=== PATIENT | female | born 1985 | race Caucasian/White ===

== ENCOUNTER 2022-03-13 10:28 | Outpatient (CLI) | payer BC, SELFPAY ==
[2022-03-13 12:22] LABS: Cholesterol* 103 mg/dL (90-199)
[2022-03-13 12:23] LABS: Glucose* 90 mg/dL (60-115); HDL Cholesterol* 48 mg/dL (>=50); LDL Cholesterol Calculated 33 mg/dL (<100); Triglycerides* 108 mg/dL (40-149)
== END 2022-03-13 10:29 | disposition home or self-care (01) ==
PROVIDERS: Visit Provider Physician Assistant
DX: Z01.419 Encounter for gynecological examination (general) (routine) without abnormal findings (principal); N92.0 Excessive and frequent menstruation with regular cycle; Z12.4 Encounter for screening for malignant neoplasm of cervix; Z13.6 Encounter for screening for cardiovascular disorders; Z13.1 Encounter for screening for diabetes mellitus
CPT/HCPCS: 80061; 82947; 84443; 87624; 88175

== ENCOUNTER 2022-03-17 12:06 | Outpatient (CLI) | payer BC, SELFPAY ==
--- NOTE | 2022-03-17 12:15 | CRLHL7_ITS ---
For Patients: As a result of the Century Cures Act, medical imaging exams and procedure reports are released immediately into your electronic medical record. You may view this report before your referring provider. If you have questions, please contact your health care provider. INDICATION: HEAVY/PAINFUL BLEEDING COMPARISON: none TECHNIQUE: 2D ny scale and color Doppler images were acquired of the pelvis using a transabdominal and transvaginal approach. FINDINGS: Sonographic images demonstrate a normal size and smooth outer contour of the uterus. Uterus measures 8.3 cm in length by 5.9 cm in AP diameter by 6.0 cm in transverse dimension. The endometrium measures 9 millimeters in composite thickness. There is a suggestion of small polyps within the endometrial canal on the cine clip. No endometrial fluid. Mild indistinctness of the junctional zone may be present. The right ovary measures 3.1 x 1.8 x 2.0 cm in size and the left ovary measures 3.8 x 1.7 x 2.1 cm. A small incidental complex left ovarian cyst is present measuring 1.8 x 1.6 x 1.7 cm, likely a hemorrhagic cyst. The ovaries demonstrate normal arterial and venous blood flow on color Doppler analysis. There are no suspicious fluid collections within the cul-de-sac. IMPRESSION: Endometrial thickness 9 millimeters with possible small polyps which are difficult to discern on the 2D images but appear to be present on the cine clip. Possible adenomyosis. No leiomyomas. Dictated by Maicol Goodwin MD @ 03/17/2022 2:05:33 PM (Electronically Signed)
== END 2022-03-17 12:07 | disposition home or self-care (01) ==
PROVIDERS: Visit Provider Physician Assistant
DX: N92.0 Excessive and frequent menstruation with regular cycle (principal); N94.6 Dysmenorrhea, unspecified; R10.2 Pelvic and perineal pain
CPT/HCPCS: 76830; 76856; 87086

== ENCOUNTER 2022-06-05 07:25 | Day surgery (SDC) | payer BC, SELFPAY ==
[2022-06-05] VITALS (22 sets, daily range): BP systolic 113–131; BP diastolic 73–92; PULSE 52–99; RESP 16–18; TEMP 36.1–37.1; O2SAT 97–100; BMI 31.7
[2022-06-05] MEDS: LACTATED RINGERS 1000 ML 1,000 ML 100 ML IV ×2 (07:38→09:31)
[2022-06-05] MEDS: SODIUM CHLORIDE 0.9 % (FLUSH) 10 ML SYRINGE IVF (07:38)
[2022-06-05 08:08] LABS: Ur HCG Qualitative* Negative (Negative)
[2022-06-05 08:19] LABS: Hemoglobin* 12.9 gm/dL (12.0-16.0)
[2022-06-05] MEDS: CLINDAMYCIN 900 MG/50 ML-D5W IVPB (08:38)
[2022-06-05 08:39] LABS: Creatinine* 0.7 mg/dL (0.5-1.5); Est. Creatinine Clearance* 90.14; Estimated Glomerular Filt Rate 113 ml/min
--- NOTE | 2022-06-05 09:04 | W.PM.NB ---
Nerve Block Nerve Block Time Seen by Provider: 08:35 Date Seen: 06/05/22 Type of block requested by surgeon for post-operative analgesia: TAP Side: bilateral Time out performed: Yes Verification of patient name: Yes Verification of date of : Yes Site marking: site marked Name of person performing procedure: Jony Continuous monitoring Was continuous monitoring of O2 sat, B/P, diagnostic cardiac sonographer, recorded every 15 minutes?: Yes Procedure Checklist: sterile prep, needles and gloves Ultrasound guided. Images saved: Yes Medications given in 5ml increments after negative aspiration: Marcaine %: 0.25 mL: 30 Needle gauge: 20 and Exparel mL: 10 Patient tolerated procedure well: Yes Additional comments: Needle noted adjacent to nerve Block Charges Block Charge (with Pro Fee): TAP Bilateral Use of Ultrasound Machine for Block: Yes- US Guidance/pain block
[2022-06-05] MEDS: GENTAMICIN 325 MG in 0.9 % SODIUM CHLORIDE 100 ml 100 ML 108.13 MG IVPB (09:05)
--- NOTE | 2022-06-05 09:05 | W.ANESCHARGE ---
Anesthesia Charges Start Date/Time Anesthesia Start Date: 06/05/22 Anesthesia Start Time: 08:28 Stop Date/Time Anesthesia Stop Date: 06/05/22 Anesthesia Stop Time: 12:00 Summary Emergency: No
[2022-06-05] MEDS: BUPIVACAINE 0.5% 30 ML INJECTION (11:00)
--- NOTE | 2022-06-05 12:03 | P.GYNPRC_ITS ---
Procedure Note Date Seen: 06/05/22 Procedure Details: PREOPERATIVE DIAGNOSIS: Menorrhagia Dysmenorrhea Family history of ovarian cancer Suspected endometrial polyp on recent imaging POSTOPERATIVE DIAGNOSIS: Menorrhagia Dysmenorrhea Family history of ovarian cancer Suspected endometrial polyp on recent imaging; benign results on frozen section of endometrial curettings intraoperatively TITLE OF OPERATION: 1. Dilation and curettage followed by frozen section 2. Total laparoscopic hysterectomy with bilateral salpingo-oophorectomy 3. Cystoscopy SURGEON: Frannie Strange MD CHIEF OPTOMETRY SERVICE: Carla Lugo MD ANESTHESIA: General IV FLUIDS: 1800 mL crystalloid ESTIMATED BLOOD LOSS: 50 mL FINDINGS: 1. Upon pelvic exam under anesthesia, the cervix and vagina were normal in appearance. Uterus was mobile and anteverted, of normal size and texture. There were no palpable adnexal masses. 2. Upon laparoscopy, survey of the upper abdomen revealed a normal appearance to the inferior edge of the liver, gallbladder and stomach. Bowels were grossly normal appearance, as was the appendix. There was an omental adhesion to the anterior abdominal wall just to the left and inferior to the umbilicus. Survey of the pelvis revealed normal appearance to the uterus. Bilateral tubes and ovaries were normal in appearance. The cul-de-sac and bladder reflection were normal in appearance. 3. Upon cystoscopy performed after completion of hysterectomy, survey of the bladder mucosa was normal. There were bilateral ureteral jets. COMPLICATIONS: None PROCEDURE IN DETAIL: Patient was taken to the operating room with IV running. She received gentamicin and clindamycin in preoperative prophylaxis. She was positioned in dorsal lithotomy position with her legs fully supported in Yellofin stirrups. General anesthesia was administered. She was prepped and draped in the usual sterile fashion. Pelvic exam under anesthesia was performed for the above-noted findings. Speculum was inserted. Cervix visualized and grasped along its anterior lip with a single-tooth tenaculum. Cervix was dilated with Hegar dilators to accommodate the small sharp curette. Sharp curettage was performed circumferentially and curettings were sent to pathologist for analysis. The frozen section analysis returned as benign intraoperatively. The medium-sized VCare uterine manipulator was selected. The tip of the uterine manipulator was inserted through the cervix into the uterine cavity and the balloon was inflated. The speculum and tenaculum were removed. The colpotomy cup was advanced, surrounding the cervix, and the proximal occluder was moved up along the shaft of the VCare and fixed in place. Berg catheter was placed. Patient's legs were then placed in neutral position. Attention was turned to patient's abdomen. Infraumbilical area was infiltrated with a small amount of Marcaine. A 5 mm infraumbilical incision was made with a scalpel and carried down to the underlying layer of fascia with the hemostat. 5 mm camera was placed within the 5 mm Fios Kii trocar, and advanced under direct visualization through the anterior abdominal wall into the peritoneal cavity, while tenting up the anterior abdominal wall. The trocar was removed. The balloon was inflated, holding the port in place. Pneumoperitoneum was achieved. Survey of the abdomen and pelvis revealed the above-noted findings. Three additional port sites were created. The first was in the patient's left lower quadrant, just superomedial to the left ASIS. The second was a hand's breadth superior to and slightly medial to the first. The third was in the patient's right lower quadrant, just superomedial to the right ASIS. An 11 mm incision was made in the left lower quadrant, and a 5 mm incision was made at the other 2 sites, after assuring that large vessels were out of harm's way. An 11 mm Fios Kii port was inserted at the left lower quadrant site, and a 5 mm Fios Kii port at each of the other 2 sites, under direct visualization and without complication. The balloon on each of the four ports was inflated, hold ing each in place. In order to place the last port, the above described omental adhesions to the anterior abdominal wall were dissected away with the Thunderbeat device, until the area planned for port insertion was clear. Hemostasis was noted. Attention was first turned to the right infundibulopelvic ligament, which was held away from the pelvic sidewall, cauterized and transected using the Th underbeat bipolar cautery device. Dissection was carried laterally to medially through the broad ligament. The right round ligament was cauterized and transected in its mid section with Thunderbeat. Attention was then turned to the left infundibulopelvic ligament, which was held away from the pelvic sidewall, cauterized and transected using the Thunderbeat bipolar cautery device. Dissection was carried laterally to medially through the broad ligament. The left round ligament was cauterized and transected in its midsection with the Thunderbeat. The left uterine artery was skeletonized. The bladder flap was created on the patient's left side, moving laterally to medially. The left uterine artery was cauterized and transected with the Thunderbeat device. Using the colpotomizer cup as a guide, the peritoneum and underlying stroma was dissected off the anticipated site of colpotomy over the posterior vaginal fornix. Attention was then turned to the right side of the uterus. The bladder flap was created on the patient's right side, and dissection was carried laterally to medially, meeting the dissection where it had left off from the patient's right side. The right uterine artery was cauterized and transected with the Thunderbeat device. The bladder reflection was moved well below the colpotomizer cup anteriorly. The vaginal fornix was then entered anteriorly with the Thunderbeat device, using the colpotomizer cup as a guide. Monopolar cautery was also used along the circumference of the colpotomizer cup, until the uterus and cervix were freed from their attachments to the pelvis. The uterus was pulled into the patient's vagina, maintaining the pneumoperitoneum. The vaginal cuff was closed with a series of [id number] sutures of 0 Vicryl. These sutures were placed and tied intracorporeally. Ports were left in place but all instruments were removed and pneumoperitoneum was released. Patient's legs were placed back in lithotomy position. The uterus was removed from the vagina and was sent to pathology for further analysis. Speculum exam was performed, showing an intact cuff with no obvious active bleeding. The Berg catheter was removed from the bladder, and the cystoscope was assembled with saline inflow, outflow, and light cord in place. The patient was given IV sodium fluorescein prior to the cystoscopy. Cystoscope was advanced through the urethra into the bladder, and survey of the mucosa revealed a normal appearance. The bladder dome was intact. Bilateral ureteral jets were noted. Cystoscope was removed and Berg catheter replaced. Patient's legs were again placed in neutral position. Insufflator was reattached to the port and pneumoperitoneum again achieved. Survey of the pelvis revealed hemostasis. The 11 mm Fios Kii port in the left lower quadrant was removed after balloon on the port was deflated. The Marty-Loree laparoscopic closure device was inserted through this port. With the help of this device, the fascia was closed with a single suture of 0-Vicryl. Procedure was deemed complete. The balloons of all remaining port sites were deflated, and all ports were removed after pneumoperitoneum was released. The skin of each port site was closed in a subcuticular fashion with 4 0 Vicryl. Surgical glue was applied above this. Patient tolerated procedure well and was taken to recovery area in stable condition.
--- NOTE | 2022-06-05 12:04 | W.ANESCHARGE ---
Anesthesia Charges Start Date/Time Anesthesia Start Date: 06/05/22 Anesthesia Start Time: 08:28 Stop Date/Time Anesthesia Stop Date: 06/05/22 Anesthesia Stop Time: 12:00 Summary Emergency: No
[2022-06-05] MEDS: fentaNYL 100 MCG/2 ML inj 50 MCG IVP ×2 (12:21→12:35)
[2022-06-05] MEDS: LACTATED RINGERS 1000 ML 1,000 ML 125 ML IV (14:15)
[2022-06-05] MEDS: OXYCODONE 5 MG TABLET PO (15:41)
[2022-06-05] MEDS: ACETAMINOPHEN 325 MG TABLET 650 MG PO ×2 (15:41→21:15)
[2022-06-05] MEDS: SIMETHICONE 80 MG TAB.CHEW 160 MG PO ×2 (15:43→20:20)
[2022-06-05] MEDS: KETOROLAC 30 MG/ML inj IVP ×2 (17:31→23:50)
[2022-06-06 03:37] VITALS: BP 114/71; PULSE 59; RESP 16; O2SAT 98
[2022-06-06] MEDS: ACETAMINOPHEN 325 MG TABLET 650 MG PO ×3 (03:49→12:02)
[2022-06-06] MEDS: OXYCODONE 5 MG TABLET PO ×3 (03:49→12:24)
[2022-06-06 04:53] LABS: Hemoglobin* 10.3 gm/dL (12.0-16.0)
[2022-06-06 05:07] LABS: Creatinine* 0.7 mg/dL (0.5-1.5); Est. Creatinine Clearance* 90.14; Estimated Glomerular Filt Rate 113 ml/min
[2022-06-06 08:15] VITALS: BP 101/66; PULSE 77; RESP 18; TEMP 36.9
--- NOTE | 2022-06-06 08:32 | PM.GYNDS1 ---
DS: Providers Provider Date Seen: 06/06/22 Date of admission: 06/05/2022 Primary care physician: Rupinder Rueda PA-C Admitting Clinician: Dr. Frannie Strange MD Attending Physician on discharge: Frannie Strange MD Date of Discharge: 06/06/22 DS: Diagnosis Discharge Diagnosis (1) Family history of ovarian cancer: Status: Acute Problem details: lifetime risk of ovarian cancer 3-5% (2) History of total vaginal hysterectomy (TVH): Status: Acute (3) Surgical menopause: Status: Acute (4) Anemia due to acute blood loss: Status: Acute PRECISION ASSEMBLY INSPECTOR-Discharge Summary Hospital Course Hospital Course Narrative: Patient is a 36 year old woman admitted on 06/05/2022 for dilation and curettage frozen section, followed by total laparoscopic hysterectomy with bilateral salpingo-oophorectomy and cystoscopy. Indication for surgery: Dysmenorrhea, menorrhagia, and increased risk of ovarian cancer. Intraoperative findings were notable for benign endometrial curettings on frozen section. Uterus, bilateral tubes and ovaries were normal appearance. She had an uncomplicated surgery. Postoperative course has been uneventful. Vitals have been stable. She has remained afebrile. Today, on postoperative day 1, she reports the pain is well controlled. She has been able to ambulate Without difficulty. She is tolerating regular diet. She is passing flatus. Berg catheter has been removed, and she is voiding without difficulty. Time Spent with Patient Time attestation: Total time spent providing and/or coordinating discharge services: PRECISION ASSEMBLY INSPECTOR - Exam Physical Exam: Vital signs: Temp Pulse Resp BP Pulse Ox O2 Del Method 98.4 F 77 18 101/66 98 06/06/22 08:15 06/06/22 08:15 06/06/22 08:15 06/06/22 08:15 06/06/22 03:37 06/06/22 08:15 Narrative: General: Pleasant, no acute distress Heart: Regular rate and rhythm, no murmur or gallop Lungs: Clear to auscultation bilaterally Abdomen: Soft, mildly tender, no distension, rebound or guarding, laparoscopic incisions clean and dry Lower extremities: No edema or erythema PRECISION ASSEMBLY INSPECTOR - DS: Data Data Completed and Pending Labs on day of discharge: Labs from last 24 hours 12/16/22 12/16/22 12/15/22 04:45 04:45 08:04 Hgb 10.3 L Creatinine 0.7 Estimated Creat Clear 90.14 Estimated GFR 113 Blood Type O Positive Antibody Screen NEGATIVE 06/05/22 08:04 Hgb Creatinine 0.7 Estimated Creat Clear 90.14 Estimated GFR 113 Blood Type Antibody Screen Procedures Procedures: Procedures Operation Date: 06/05/22 07:30 Actual Procedure Side Surgeon p Total Laparoscopic Hysterectomy, Bilateral Salpingo-Oophorectomy, Cystoscopy, D&C w/Frozen Section Frannie Strange MD Complications: none Discharge Plan Discharge Disposition: Home, Self-Care Discharging Surgeon: Frannie Strange Follow-Up Appointment: 2 and 6 weeks Prescriptions: New acetaminophen 325 mg Tablet 650 mg PO Q4H PRN (Reason: minor pain) Qty: 0 0RF oxycodone 5 mg Tablet 5 mg PO Q4H PRN (Reason: Moderate Pain) Qty: 10 0RF estradiol 0.1 mg/24 hr patch semiweekly 1 patch transdermal 2XW Qty: 8 2RF Rx Instructions: apply 1 patch for 3 days alternating with 1 patch for 4 days each week for 3 wks per 4-wk cycle Continued multivitamin [Daily Multi-Vitamin] Tablet 1 tab PO QAM B-Complex Folic Acid PO cyanocobalamin (vitamin B-12) 500 mcg tablet 500 mcg PO DAILY ferrous gluconate 324 mg (38 mg iron) tablet PO DAILY calcium citrate-vitamin D3 200 mg-6.25 mcg (250 unit) tablet 2 tab PO DAILY Discontinued peg 3350-electrolytes [Golytely] 236-22.74-6.74 -5.86 gram recon soln 240 ml PO Q15M Qty: 4000 0RF Rx Instructions: until fecal effluent is clear Activity Detail: No lifting >20 lbs for 4 [address] while taking narcotic pain medications. Do not submerge incisions under water for 2 weeks. Discharge Diet: Regular Patient Instructions: Laparoscopic Hysterectomy (DC) Forms: Work/School Release Follow-up: Frannie Strange MD [Staff Physician] - Rupinder Rueda PA-C [Primary Care Provider] - Discharge Orders: Discharge Order (Routine); Ordered 06/06/22 Ordered By: Frannie Strange
== END 2022-06-06 12:30 | disposition home or self-care (01) ==
LOC: OR 07:36 → OB 07:38
PROVIDERS: PCP Physician Assistant Medical; Visit Provider Obstetrics & Gynecology
PROC: 0UT94ZZ Resection of Uterus, Percutaneous Endoscopic Approach (ICD-10-PCS; CPT 58571; principal; 2022-06-05 07:30)
DX: N92.0 Excessive and frequent menstruation with regular cycle (principal); N94.6 Dysmenorrhea, unspecified; N84.0 Polyp of corpus uteri; N72 Inflammatory disease of cervix uteri; E28.2 Polycystic ovarian syndrome; D62 Acute posthemorrhagic anemia; Z80.41 Family history of malignant neoplasm of ovary
CPT/HCPCS: 58571; 58120; 00840; 36415; 51798; 64488; 76942; 81025; 82565; 85018; 86850; 86900; 86901; 88305; 88307; A9270; C9290; J0330; J1100; J1580; J1885; J2250; J2405; J2704; J3010; J3475; J3490; J7120; S0077

== ENCOUNTER 2022-06-24 08:54 | Outpatient (CLI) | payer BC, SELFPAY | END 2022-06-24 08:55 | disposition home or self-care (01) | PROVIDERS: PCP Physician Assistant Medical; Visit Provider Obstetrics & Gynecology | DX: R30.9 Painful micturition, unspecified (principal) | CPT/HCPCS: 87086 ==